=== PATIENT | female | born 1990 | race African-American/Black ===

== ENCOUNTER 2016-06-14 13:05 | Emergency (ER) | payer OTHER ==
[2016-06-14 13:21] VITALS: BP 129/53; PULSE 78; TEMP 98; BMI 21.2
--- NOTE | 2016-06-14 14:05 | PDOC ---
History of Present Illness - General Chief Complaint: Laceration Stated Complaint: RT HAND INJURY Time Seen by Provider: 06/14/16 13:58 History Source: Patient Exam Limitations: No Limitations - History of Present Illness Initial Comments: 06/14/16 15:02 My Chief Complaint: Laceration to right palm History of present illness: Patient is a 26-year-old female with a history of renal calculi here today with a superficial laceration to her right palm proximal to her thumb sustained on a broken tile in her home she was cleaning that area. Patient is right handed. Patient is not up-to-date with tetanus is requesting to have updated today. Patient reports slight tenderness around area. She denies any numbness of right palm or digits on her right hand. Occurred: reports: just prior to arrival Severity: reports: mild (right hand superficial laceration ) Pain Location: reports: upper extremity (rt. palm proximal ) Method of Injury: Yes: other (cut on tile ) Modifying Factors: improves with: None Associated Symptoms (Fall): other (laceration rt. sweeney proximal to thumb ) Past History - Past Medical History Allergies/Adverse Reactions: Allergies Allergy/AdvReac Type Severity Reaction Status Date / Time levofloxacin [From Levaquin] Allergy Severe Difficulty Verified 06/14/16 13:16 Breathing morphine Allergy Severe Verified 06/14/16 13:16 witch anuradha Allergy Intermediate Hives Verified 06/14/16 13:16 kirsten Allergy Verified 06/14/16 13:16 pineapple Allergy Verified 06/14/16 13:16 cherries Allergy Uncoded 06/14/16 13:16 Home Medications: Ambulatory Orders NK [No Known Home Medication] 06/14/16 Asthma: No Cancer: No Cardiac Disorders: No Diabetes: No HTN: No Kidney Stones: Yes Suicide Attempt (Hx): No Seizures: No Thyroid Disease: No - Reproductive History (#): 2 Para: 0 - Immunization History Immunization Up to Date: Yes - Psycho/Social/Smoking Cessation Hx Anxiety: Yes Suicidal Ideation: No Smoking Status: Yes Smoking History: Never smoked Years of Tobacco Use: 4 Have you smoked in the past 12 months: No Number of Cigarettes Smoked Daily: 0 If you are a former smoker, when did you quit?: 1 year Cigars Per Day: 0 Information on smoking cessation initiated: No Hx Alcohol Use: No Drug/Substance Use Hx: Yes (past marijuan use neg drug tox admission) Substance Use Type: None Hx Substance Use Treatment: No Review of Systems - Review of Systems Able to Perform ROS?: Yes Constitutional: No: Symptoms Reported Respiratory: No: Symptoms reported Cardiac (ROS): No: Symptoms Reported Musculoskeletal: No: Symptoms Reported Integumentary: Yes: Other (superficial laceration rt. palm proximal to thumb ) Neurological: No: Symptoms reported *Physical Exam - Vital Signs Last Vital Signs Temp Pulse Resp BP Pulse Ox 98 F 78 18 129/53 98 06/14/16 13:12 06/14/16 13:12 06/14/16 13:12 06/14/16 13:12 06/14/16 13:12 - Physical Exam General Appearance: Yes: Appropriately Dressed Comments:: 06/14/16 15:01 radial pulse 4 + right Extremity: positive: Normal Capillary Refill, Normal Range of Motion (all digits rt. hand ). negative: Tender Integumentary: positive: Other (superfical linear laceration rt. palm proximal to thumb approx 2 cm x 0.25 cm ) Neurologic: positive: Alert, Normal Response, Respond to painful stimul (right palm and all digits ). negative: Numbness, Sensory Deficit (rt. hand and all digits on rt. hand ) Medical Decision Making - Medical Decision Making 06/14/16 15:04 Patient is a 26-year-old female with a history of renal calculi here today with a superficial laceration to her right palm proximal to her thumb sustained on a broken tile in her home she was cleaning that area. Patient is right handed. Patient is not up-to-date with tetanus is requesting to have updated today. Patient reports slight tenderness around area. She denies any numbness of right palm or digits on her right hand. Right palm superficial laceration PLAN: dermabond to laceration rt. palm telfa applied with rhiannon TDAP 0.5 ml IM now *DC/Admit/Observation/Transfer Diagnosis at time of Disposition: Laceration of palm without complication Qualifiers: Encounter type: initial encounter Laterality: right Qualified Code(s): S61.411A - Laceration without foreign body of right hand, initial encounter - Discharge Dispostion Disposition: HOME Condition at time of disposition: Stable - Patient Instructions Additional Instructions: TODAY your tetanus, diphtheria and pertussis vaccine was updated Keep right hand dry until tomorrow then may wash do not scrub area that was involved allow glue to fall off on its own, pat dry than apply dressing allow Once glue falls off may wash area with antibacterial soap and water twice daily pat dry and apply tiny amount of bacitracin ointment cover with Band-Aid when out of the home let air out at night Return to emergency room if any redness around wound or any fever or any discharge from wound You may take Tylenol or ibuprofen for any pain as directed by sap basis Patient voiced understanding of discharge instructions and all questions were answered - Post Discharge Activity Work/School Note: Back to Work
[2016-06-14] MEDS ORDERED: DIPHTH,PERTUSS(ACELL),TET 0.5 ML DISP.SYRIN IM ONE (14:39)
== END 2016-06-14 15:16 | disposition home or self-care (01) ==
LOC: JERFT 13:05 → JER 13:05 → JERFT 15:16
PROC: 3E0234Z Introduction of Serum, Toxoid and Vaccine into Muscle, Percutaneous Approach (ICD-10-PCS; principal; 2016-06-14)
PROC: 0HQFXZZ Repair Right Hand Skin, External Approach (ICD-10-PCS; 2016-06-14)
DX: S61.411A Laceration without foreign body of right hand, initial encounter (principal); W26.8XXA Contact with other sharp object(s), not elsewhere classified, initial encounter; Y93.E9 Activity, other interior property and clothing maintenance; Y92.038 Other place in apartment as the place of occurrence of the external cause
CPT/HCPCS: 12002-25; 90471; 90715; 99281-25

== ENCOUNTER 2017-02-20 16:24 | Emergency (ER) | payer OTHER ==
--- NOTE | 2017-02-20 16:36 | PDOC ---
Rapid Medical Evaluation Time Seen by Provider: 02/20/17 16:33 Medical Evaluation: Allergies Allergy/AdvReac Type Severity Reaction Status Date / Time levofloxacin [From Levaquin] Allergy Severe Difficulty Verified 06/14/16 13:16 Breathing morphine Allergy Severe Verified 06/14/16 13:16 witch anuradha Allergy Intermediate Hives Verified 06/14/16 13:16 kirsten Allergy Verified 06/14/16 13:16 pineapple Allergy Verified 06/14/16 13:16 cherries Allergy Uncoded 06/14/16 13:16 02/20/17 16:33 I have performed a brief in-person evaluation of this patient. The patient presents with a chief complaint of: left foot pain Pertinent physical exam findings: EXT: left ankle tenderness over dorsum of foot. Able to bear weight. No bony tenderness to malleolus, base of 5th metatarsal or navicular. I have ordered the following: upt The patient will proceed to the ED for further evaluation. Discharge Disposition - Diagnosis Left ankle pain - Referrals - Patient Instructions - Post Discharge Activity
[2017-02-20 16:38] VITALS: BP 127/57; PULSE 88; TEMP 98.1; BMI 20.5
--- NOTE | 2017-02-20 17:22 | PDOC ---
History of Present Illness - General Chief Complaint: Pain Stated Complaint: ANKLE INJURY Time Seen by Provider: 02/20/17 16:33 History Source: Patient Exam Limitations: No Limitations - History of Present Illness Initial Comments: 02/20/17 17:21 My Chief Complaint: Left foot pain and left fifth toe pain and posterior left knee pain since yesterday History of present illness: Patient is a 26-year-old female with a history of renal calculi here today after falling on stairs last night and in her left foot and leg backwards. She reports having pain to her left lateral foot and fifth toe and posterior left knee that is currently between a 6 and 7 aching in nature. Patient does not have any gross deformity of her left foot or knee. Patient took Aleve earlier today. Patient is ambulating with a slight limp. 02/20/17 18:15 02/20/17 18:17 Occurred: reports: yesterday Severity: Yes: moderate Lower Extremity Pain Location: left: 5th toe, foot (lateral aspect ) Lower Ext. Injury Location - Specific Injury Location Hips: left hip: no evidence of injury Knees: left pain (posterior left knee) Foot: left foot pain (lateral foot, left 5th toe) Extremity Pain Location - Extremity Pain Location Extremity Pain Locations: left: 5th toe, foot (lateral aspect ), knee ( posterior aspect ) Past History - Past Medical History Allergies/Adverse Reactions: Allergies Allergy/AdvReac Type Severity Reaction Status Date / Time levofloxacin [From Levaquin] Allergy Severe Difficulty Verified 06/14/16 13:16 Breathing morphine Allergy Severe Verified 06/14/16 13:16 witch anuradha Allergy Intermediate Hives Verified 06/14/16 13:16 kirsten Allergy Verified 06/14/16 13:16 pineapple Allergy Verified 06/14/16 13:16 cherries Allergy Uncoded 06/14/16 13:16 Home Medications: Ambulatory Orders NK [No Known Home Medication] 06/14/16 Asthma: No Cancer: No Cardiac Disorders: No COPD: No Diabetes: No HTN: No Kidney Stones: Yes Seizures: No Thyroid Disease: No - Reproductive History (#): 2 Para: 0 - Immunization History Immunization Up to Date: Yes - Suicide/Smoking/Psychosocial Hx Smoking Status: Yes Smoking History: Current every day smoker Years of Tobacco Use: 4 Have you smoked in the past 12 months: No Number of Cigarettes Smoked Daily: 2 If you are a former smoker, when did you quit?: 1 year Cigars Per Day: 0 Information on smoking cessation initiated: No Hx Alcohol Use: No Drug/Substance Use Hx: No Substance Use Type: Marijuana Hx Substance Use Treatment: No Review of Systems - Review of Systems Able to Perform ROS?: Yes Constitutional: No: Symptoms Reported HEENTM: No: Symptoms Reported Respiratory: No: Symptoms reported Cardiac (ROS): No: Symptoms Reported ABD/GI: No: Symptoms Reported : No: Symptoms Reported Musculoskeletal: Yes: Joint Pain (left posterior knee, left lateral foot, left 5th toe). No: Joint Swelling Integumentary: No: Symptoms Reported Neurological: No: Symptoms reported *Physical Exam - Vital Signs Last Vital Signs Temp Pulse Resp BP Pulse Ox 98.1 F 88 14 127/57 100 02/20/17 16:33 02/20/17 16:33 02/20/17 16:33 02/20/17 16:33 02/20/17 16:33 - Physical Exam General Appearance: Yes: Appropriately Dressed Vascular Pulses: Doralis-Pedis (L): 4+ Extremity: positive: Normal Capillary Refill, Normal Inspection, Normal Range of Motion (left knee, left ankle/foot/toes left ), Tender (left posterior knee, left lateral foot/ all toes left foot ), Other (negative anterior/posterior drawer ). negative: Swelling Integumentary: positive: Normal Color Neurologic: positive: Alert, Normal Response, Respond to painful stimul (left foot/toes ). negative: Numbness, Sensory Deficit (left foot/toes/ankle) Procedures - Consent Consent obtained: From Patient - Splinting Splint Location: Left: Foot Pre-Proc Neuro Vasc Exam: normal Manuelito Bandage: 3" Complications: No Medical Decision Making - Medical Decision Making 02/20/17 18:17 Patient is a 26-year-old female with a history of renal calculi here today after falling on stairs last night and in her left foot and leg backwards. She reports having pain to her left lateral foot and fifth toe and posterior left knee that is currently between a 6 and 7 aching in nature. Patient does not have any gross deformity of her left foot or knee. Patient took Aleve earlier today. Patient is ambulating with a slight limp. She denies any chance of . Rule out fracture left foot and toes Knee pain posterior Fall Plan: xray left foot negative for fracture manuelito wrap left foot *DC/Admit/Observation/Transfer Diagnosis at time of Disposition: Fall (on) (from) other stairs and steps, initial encounter Left ankle pain Qualifiers: Chronicity: acute Qualified Code(s): M25.572 - Pain in left ankle and joints of left foot Sprain of foot, left Qualifiers: Encounter type: initial encounter Qualified Code(s): S93.602A - Unspecified sprain of left foot, initial encounter Posterior knee pain Qualifiers: Laterality: left Qualified Code(s): M25.562 - Pain in left knee - Discharge Dispostion Disposition: HOME Condition at time of disposition: Stable - Referrals Referrals: Vannessa Davison [Primary Care Provider] - - Patient Instructions Additional Instructions: Elevate your left foot and leg and ice left foot every hour for at least 15 minutes while awake today Wear Manuelito wrap during the day take off at night Take ibuprofen as needed as directed by chief orthoptist for pain Follow-up with orthopedist next week if pain continues and left foot and left knee Return to emergency room if symptoms worsen or new symptoms develop Patient voiced understanding of discharge instructions and all questions were answered Thank you for choosing [facility]. Medical needs today - Post Discharge Activity Forms/Work/School Notes: Back to Work
== END 2017-02-20 18:22 | disposition home or self-care (01) ==
LOC: JERFT 16:24
DX: S93.602A Unspecified sprain of left foot, initial encounter (principal); W10.8XXA Fall (on) (from) other stairs and steps, initial encounter; Z91.81 History of falling; Y93.89 Activity, other specified; Y92.89 Other specified places as the place of occurrence of the external cause
CPT/HCPCS: 73630-TC-LT; 99281-25

== ENCOUNTER 2017-06-27 15:15 | Emergency (ER) | payer OTHER ==
[2017-06-27 15:24] VITALS: BP 108/67; PULSE 82; TEMP 98.5; BMI 17.6
[2017-06-27] MEDS ORDERED: SODIUM CHLORIDE 0.9% 500 ML INFUS.BAG IV ONE (15:54)
[2017-06-27] MEDS ORDERED: KETOROLAC TROMETHAMINE 15 MG/ML VIAL IVPUSH ONE (15:54)
[2017-06-27] MEDS ORDERED: ONDANSETRON 4 MG/2 ML VIAL IVPUSH ONE ×2 (15:54→18:42)
--- NOTE | 2017-06-27 15:56 | PDOC ---
History of Present Illness - General History Source: Patient Exam Limitations: No Limitations - History of Present Illness Initial Comments: This is a 27 YOF who is with h/o kidney stones (last years ago and had stent placed and then removed), vacuum in 04/2016, and marijuana use (5- 6 times/day) who p/w nausea, vomiting, diarrhea, and bilateral flank pain since yesterday. Her symptoms started with loose light brown/yellow stool yesterday ( 6 episodes since that time). The had the onset of flank pain yesterday evening, worse on the right side than the left, and describes is as like pressure with twinges of sharper pain. She had the onset of nausea this morning and has vomited 4 times since that time without blood or bile. She notes occasional chills, but denies any headache, chest pain, abdominal pain, SOB, dizziness, LOC , burning/pain/strange color/strange smell on urination, or vaginal discharge. She has a h/o genital HSV, is sexually active with one person (her boyfriend) without protection, and has not been talking control. She is on her menstrual period, which is the the first one she has had since her in April. <Daniella Field - Last Filed: 06/28/17 00:06> <Beltran Almanza - Last Filed: 06/28/17 00:58> - General Chief Complaint: Nausea Stated Complaint: NAUSEA, VOMITING Time Seen by Provider: 06/27/17 15:37 Past History - Past Medical History Asthma: No Cancer: No Cardiac Disorders: No COPD: No Diabetes: No HTN: No Kidney Stones: Yes Seizures: No Thyroid Disease: No - Reproductive History (#): 2 Para: 0 - Immunization History Immunization Up to Date: Yes - Suicide/Smoking/Psychosocial Hx Smoking Status: Yes Smoking History: Never smoked Years of Tobacco Use: 4 Have you smoked in the past 12 months: No Number of Cigarettes Smoked Daily: 2 If you are a former smoker, when did you quit?: 1 year Cigars Per Day: 0 Information on smoking cessation initiated: No Hx Alcohol Use: No Drug/Substance Use Hx: No Substance Use Type: Marijuana Hx Substance Use Treatment: No <Daniella Field - Last Filed: 06/28/17 00:06> <Beltran Almanza - Last Filed: 06/28/17 00:58> - Past Medical History Allergies/Adverse Reactions: Allergies Allergy/AdvReac Type Severity Reaction Status Date / Time levofloxacin [From Levaquin] Allergy Severe Difficulty Verified 06/27/17 15:21 Breathing morphine Allergy Severe Verified 06/27/17 15:21 witch anuradha Allergy Intermediate Hives Verified 06/27/17 15:21 kirsten Allergy Verified 06/27/17 15:21 pineapple Allergy Verified 06/27/17 15:21 cherries Allergy Uncoded 06/27/17 15:21 Home Medications: Ambulatory Orders Sulfamethoxazole/Trimethoprim [Bactrim Ds -] 1 tab PO BID #28 tablet 06/28/17 Review of Systems - Review of Systems Able to Perform ROS?: Yes Constitutional: Yes: Chills. No: Fever, Unexplained wgt Loss HEENTM: No: Nose Congestion, Throat Pain Respiratory: No: Cough, Shortness of Breath Cardiac (ROS): No: Chest Pain, Palpitations ABD/GI: Yes: Diarrhea, Nausea, Vomiting. No: Constipated : Yes: Flank Pain. No: Burning, Dysuria, Hematuria Musculoskeletal: No: Back Pain, Neck Pain Integumentary: No: Bruising, Rash Neurological: No: Headache, Numbness, Tingling, Weakness, Dizziness Endocrine: No: Unexplained Weight Gain, Unexplained Weight Loss <Daniella Field - Last Filed: 06/28/17 00:06> *Physical Exam - Vital Signs Last Vital Signs Temp Pulse Resp BP Pulse Ox 98.5 F 82 16 108/67 100 06/27/17 15:21 06/27/17 15:21 06/27/17 15:21 06/27/17 15:21 06/27/17 15:21 - Physical Exam General Appearance: Yes: Nourished, Appropriately Dressed, Thin, Other (well appearing and mildly uncomfortable-appearing adult female who is conversive, answering questions appropriately, holding right flank in her right hand and laying in left lateral decubitus position). No: Apparent Distress HEENT: positive: EOMI, KULWINDER, Normal Voice, Hearing Grossly Normal. negative: Scleral Icterus (R), Scleral Icterus (L), Nasal Congestion Neck: positive: Trachea midline, Supple. negative: Tender, Rigid Respiratory/Chest: positive: Lungs Clear, Normal Breath Sounds. negative: Respiratory Distress, Crackles, Rhonchi, Stridor, Wheezing Cardiovascular: positive: Regular Rhythm, Regular Rate, S1, S2. negative: Edema , JVD, Murmur Gastrointestinal/Abdominal: positive: Normal Bowel Sounds, Tender (mild epigastric ttp), Flat, Soft. negative: Organomegaly, Pulsatile Mass, Guarding Musculoskeletal: positive: Normal Inspection, Other (L>R CVA ttp, mild epigastric ttp, no peritoneal signs). negative: Decreased Range of Motion, Vertebral Tenderness Extremity: positive: Normal Capillary Refill, Normal Inspection, Normal Range of Motion. negative: Tender, Cyanosis Integumentary: positive: Normal Color, Dry, Warm. 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 negative: Facial Droop , Confused, Disoriented <Daniella Field - Last Filed: 06/28/17 00:06> - Vital Signs Last Vital Signs Temp Pulse Resp BP Pulse Ox 98.5 F 82 16 108/67 100 06/27/17 15:21 06/27/17 15:21 06/27/17 15:21 06/27/17 15:21 06/27/17 15:21 <Beltran Almanza - Last Filed: 06/28/17 00:58> ED Treatment Course - LABORATORY CBC & Chemistry Diagram: 06/27/17 16:25 06/27/17 16:25 <Daniella Field - Last Filed: 06/28/17 00:06> - LABORATORY CBC & Chemistry Diagram: 06/27/17 16:25 06/27/17 16:25 - ADDITIONAL ORDERS Additional order review: Laboratory Results 06/27/17 06/27/17 06/27/17 19:30 17:40 17:40 Sodium Potassium Chloride Carbon Dioxide Anion Gap BUN Creatinine Creat Clearance w eGFR Random Glucose Calcium Total Bilirubin AST ALT Alkaline Phosphatase Total Protein Albumin Lipase Urine Color Yellow Cancelled Urine Appearance Turbid Cancelled Urine pH 5.0 Cancelled Ur Specific [place] 1.030 Cancelled Urine Protein 1+ H Cancelled Urine Glucose (UA) Negative Cancelled Urine Ketones Trace H Cancelled Urine Blood 2+ H Cancelled Urine Nitrite Negative Cancelled Urine Bilirubin Negative Cancelled Urine Urobilinogen Negative Cancelled Ur Leukocyte Esterase Negative Cancelled Urine WBC (Auto) 74 Urine RBC (Auto) 19 Urine Bacteria Rare Urine Mucus Many Urine HCG, Qual Negative 06/27/17 06/27/17 16:25 16:25 Sodium 138 Potassium 3.7 Chloride 109 H Carbon Dioxide 24 Anion Gap 5 L BUN 14 Creatinine 0.8 Creat Clearance w eGFR > 60 Random Glucose 72 L Calcium 8.8 Total Bilirubin 0.6 D AST 26 ALT 27 Alkaline Phosphatase 71 Total Protein 9.2 H Albumin 4.7 Lipase 99 Urine Color Urine Appearance Urine pH Ur Specific [place] Urine Protein Urine Glucose (UA) Urine Ketones Urine Blood Urine Nitrite Urine Bilirubin Urine Urobilinogen Ur Leukocyte Esterase Urine WBC (Auto) Urine RBC (Auto) Urine Bacteria Urine Mucus Urine HCG, Qual 06/27/17 16:25 RBC 4.65 D MCV 86.6 MCHC 34.1 RDW 13.2 MPV 7.1 L Neutrophils % 76.7 Lymphocytes % 16.8 D Monocytes % 5.0 Eosinophils % 1.3 Basophils % 0.2 - Medications Given in the ED: ED Medications Discontinued Medications Generic Name Dose Route Start Last Admin Trade Name Freq PRN Reason Stop Dose Admin Famotidine/Sodium Chloride 20 mg in 50 mls @ 100 mls/hr 06/27/17 19:00 19:07 Pepcid 20 Mg Premixed Ivpb - IVPB 06/27/17 19:29 100 mls/hr ONCE ONE Administration Ceftriaxone Sodium 1,000 mg/ 50 mls @ 100 mls/hr 06/27/17 20:08 06/27/17 21: 12 Dextrose IVPB 06/27/17 20:37 100 mls/hr ONCE ONE Administration Ketorolac Tromethamine 15 mg 06/27/17 15:54 06/27/17 16:30 Toradol Injection - IVPUSH 06/27/17 15:55 15 mg ONCE ONE Administration Ketorolac Tromethamine 15 mg 06/27/17 22:42 06/27/17 22:49 Toradol Injection - IVPUSH 06/27/17 22:43 15 mg ONCE ONE Administration Ondansetron HCl 4 mg 06/27/17 15:54 06/27/17 16:30 Zofran Injection IVPUSH 06/27/17 15:55 4 mg ONCE ONE Administration Ondansetron HCl 4 mg 06/27/17 18:42 06/27/17 19:07 Zofran Injection IVPUSH 06/27/17 18:43 4 mg ONCE ONE Administration Sodium Chloride 1,000 ml 06/27/17 15:54 06/27/17 16:30 Normal Saline - IV 06/27/17 15:55 1,000 ml ONCE ONE Administration <Beltran Almanza - Last Filed: 06/28/17 00:58> Medical Decision Making - Medical Decision Making Patient p/w severe flank pain. Initial Vital Signs Temp Pulse Resp BP Pulse Ox 98.5 F 82 16 108/67 100 06/27/17 15:21 06/27/17 15:21 06/27/17 15:21 06/27/17 15:21 06/27/17 15:21 Exam: L>R CVA ttp, mild epigastric ttp, no peritoneal signs DDX IBNLT: renal colic, obstructive uropathy, UTI/pyelonephritis, PE, cholecystitis, cholangitis, pancreatitis, gastritis, PUD, colitis, ruptured diverticulosis, diverticulitis wwo abscess or perforation, appendicitis, hernia , SBO, malignancy, splenic infarction, mesenteric ischemia, bowel perforation, ovarian torsion, ovarian cyst, PID, TOA, endometriosis, fibroid, musculoskeletal , constipation, etc. W/U ordered: CBCD CMP Mg Phos UA UCx GC/Chlamydia/Trich KE US Kidneys Ureters Bladder TX ordered: IVF, Toradol On reassessment: Patient states pain much improved and now only has mild epigastric ttp, nausea is returning. Ordered IV Pepcid and another 4 mg dose Zofran. Also ordered is US Kidneys. Repeat VS: US kidneys shows moderate right hydronephrosis. Patient is high risk for obstructive nephropathy with infection. Ordered is spiral CT; patient agrees with this plan. Spiral CT without e/o obstructing stone. The patient has gotten significant relief of symptoms with ED medications. Workup is not concerning for emergency-level pathology at this time. The patient is appropriate for discharge with close outpatient follow up. They are comfortable with this plan and will follow up with their PCP in 1-3 days. I also give her referral information for Urology. She is counseled to stay well-hydrated, take Bactrim for her UTI/pyelonephritis. Return precautions are discussed and they will come back to the ER if necessary. <Daniella Field - Last Filed: 06/28/17 00:06> *DC/Admit/Observation/Transfer - Discharge Dispostion Admit: No <Daniella Field - Last Filed: 06/28/17 00:06> <Beltran Almanza - Last Filed: 06/28/17 00:58> Diagnosis at time of Disposition: Pyelonephritis, Nausea & vomiting - Discharge Dispostion Disposition: HOME Condition at time of disposition: Stable - Prescriptions Prescriptions: Sulfamethoxazole/Trimethoprim [Bactrim Ds -] 1 tab PO BID #28 tablet - Referrals Referrals: Harish Vaz MD [Staff Physician] - - Patient Instructions Printed Discharge Instructions: DI for Kidney Infection Additional Instructions: You were seen in the ER for a kidney stone that passed while you were here in the department, and for a bladder/kidney infection likely because of this stone. We did laboratory tests on your urine and blood, an ultrasound of the kidneys, and a CT scan of the abdomen. We gave you medications and IV fluids which helped your symptoms. After our assessment, we do not believe you are having a medical emergency at this time, and we believe you are safe to go home. supplier diversity director and take your prescription for Bactrim that we are sending electronically to your pharmacy. Please take the whole course as prescribed. We are giving you referral information for a urologist in case you need a new one. Please also take over the counter pain medications for pain, following the instructions on the medication label. Please follow up with your regular doctor in 1-3 days. Call their clinic [facility], tell them you were seen in the ER, and tell them you need an appointment. Please come back to the ER at any time, 24 hours a day, for any new or worsening symptoms, like worsening pain unrelieved with medications, fever, inability to urinate, burning on urination, or other symptoms. If you are having severe or life threatening symptoms, or symptoms that make it unsafe to drive or have someone drive you, please call 911. - Post Discharge Activity Forms/Work/School Notes: Back to Work
[2017-06-27] MEDS ORDERED: KETOROLAC TROMETHAMINE 15 MG/ML VIAL ONE ×2 (16:29→22:44)
[2017-06-27] MEDS ORDERED: ONDANSETRON 4 MG/2 ML VIAL ONE ×2 (16:29→19:01)
[2017-06-27 16:39] LABS: BASO % 0.2 % (0-2.0); EOS % 1.3 % (0-4.5); HEMATOCRIT 40.3 % (32.4-45.2); HEMOGLOBIN 13.7 GM/dL (10.7-15.3); LYMPH % 16.8 % (8-40); MCH 29.5 pg (25.7-33.7); MCHC 34.1 g/dl (32.0-36.0); MEAN CELL VOLUME 86.6 fl (80-96); MEAN PLT VOLUME 7.1 fl (7.5-11.1); NEUT % 76.7 % (42.8-82.8); PLATELET COUNT 231 K/MM3 (134-434); RBC 4.65 M/mm3 (3.60-5.2); RDW 13.2 % (11.6-15.6); WHITE BLOOD COUNT 5.6 K/mm3 (4.0-10.0)
--- NOTE | 2017-06-27 17:04 | PDOC ---
Attending Attestation - HPI HPI: 06/27/17 17:42 The patient is a 27 year old female, with a significant past medical history of kidney stones and genital HSV, who presents to the ED for evaluation of nausea, vomiting, diarrhea, and bilateral flank pain since yesterday. The patient reports 6 episodes of loose light brown stool yesterday. She describes the flank pain as pressure like, sharp in nature. She reports associated symptoms of chills and nausea, endorsing 4 episodes of NBNB emesis. The patient denies headache, chest pain, abdominal pain, SOB, dizziness, and loss of consciousness. She denies strange color/strange smell on urination, dysuria, hematuria, and abnormal vaginal discharge. Past surgical history: Stent placed and then removed, vacuum (04/2016). Social history: Marijuana use (5-6 times/day). No reported cigarette or alcohol use. <Jackson Chiang - Last Filed: 06/27/17 18:32> - Resident Resident Name: Daniella Field - ED Attending Attestation I have performed the following: I have examined & evaluated the patient, The case was reviewed & discussed with the resident, I agree w/resident's findings & plan, Exceptions are as noted - Physicial Exam PE: 06/27/17 20:16 Patient is awake and alert, resting comfortably, afebrile, hemodynamically stable Normocephalic, atraumatic PERRLA, EOMI CTA RRR Soft, nontender, nondistended, mild bilateral CVA tenderness No midline TLS tenderness to palpation - Medical Decision Making 06/27/17 20:17 Patient is well-appearing 27-year-old female who presents with atraumatic bilateral flank pain associated with nausea and nonbloody, nonbilious vomiting. In the ER, patient is awake and alert, afebrile with minimal bilateral CVA tenderness to palpation and mild epigastric discomfort on deep palpation. I suspect clinical pyelonephritis with gastritis likely related to frequent vomiting. We will administer IV fluids, antipyretics, H2 blockers. UA consistent with pyuria. Will administer ceftriaxone. will obtain renal us. will reascess. 06/27/17 22:49 renal US shows moderate right hydronephrosis. will obtain spiral ct to eval for obstructing stone. <Beltran Almanza - Last Filed: 06/27/17 22:49> Attestations - Attestations Documentation prepared by Jackson Chiang, acting as manager medical device for Beltran Almanza MD. <Jackson Chiang - Last Filed: 06/27/17 18:32>
[2017-06-27 17:05] LABS: ALBUMIN 4.7 g/dl (3.4-5.0); ANION GAP 5 (8-16); BLOOD UREA NITROGEN 14 mg/dL (7-18); CALCIUM 8.8 mg/dL (8.5-10.1); CHLORIDE 109 mmol/L (98-107); CO2 24 mmol/L (21-32); CREATININE 0.8 mg/dL (0.55-1.02); GLUCOSE,RANDOM 72 mg/dL (74-106); POTASSIUM 3.7 mmol/L (3.5-5.1); SGOT/AST 26 U/L (15-37); SGPT/ALT 27 U/L (12-78); SODIUM 138 mmol/L (136-145)
[2017-06-27 17:07] LABS: ALK PHOS 71 U/L (45-117); BILIRUBIN,TOTAL 0.6 mg/dL (0.2-1.0); TOT PROT 9.2 g/dl (6.4-8.2)
[2017-06-27] MEDS ORDERED: FAMOTIDINE 20 MG/50 ML IVPB 20 MG/50 ML MG IVPB ONE ×2 (19:00→19:01)
[2017-06-27 19:44] LABS: URINE APPEARANCE TURBID; URINE BILIRUBIN NEGATIVE (<2.0 mg/dL); URINE BLOOD 2+ (NEGATIVE); URINE COLOR YELLOW; URINE GLUCOSE (UA) NEGATIVE (NEGATIVE); URINE KETONE TRACE (NEGATIVE); URINE LEUK ESTERASE NEGATIVE (NEGATIVE); URINE NITRITE NEGATIVE (NEGATIVE); URINE UROBILINOGEN NEGATIVE mg/dL (0.2-1.0)
[2017-06-27 19:45] LABS: URINE PROTEIN 1+ (NEGATIVE)
[2017-06-27 19:48] LABS: URINE BACTERIA RARE /hpf (NONE SEEN); URINE MUCUS MANY
[2017-06-27] MEDS ORDERED: CEFTRIAXONE 1,000 MG in DEXTROSE 5%-WATER - 50 ML IVPB ONE (20:08)
[2017-06-27] MEDS ORDERED: CEFTRIAXONE 1 GM/50 ML BAG ONE (21:06)
[2017-06-27] MEDS ORDERED: KETOROLAC TROMETHAMINE 30 MG/1 ML VIAL IVPUSH ONE (22:42)
== END 2017-06-28 01:01 | disposition home or self-care (01) ==
LOC: JER 15:15
PROC: 3E03329 Introduction of Other Anti-infective into Peripheral Vein, Percutaneous Approach (ICD-10-PCS; principal; 2017-06-27)
PROC: 3E033GC Introduction of Other Therapeutic Substance into Peripheral Vein, Percutaneous Approach (ICD-10-PCS; 2017-06-27)
PROC: 3E033GC Introduction of Other Therapeutic Substance into Peripheral Vein, Percutaneous Approach (ICD-10-PCS; 2017-06-27)
PROC: 3E033GC Introduction of Other Therapeutic Substance into Peripheral Vein, Percutaneous Approach (ICD-10-PCS; 2017-06-27)
PROC: 3E033NZ Introduction of Analgesics, Hypnotics, Sedatives into Peripheral Vein, Percutaneous Approach (ICD-10-PCS; 2017-06-27)
PROC: 3E033NZ Introduction of Analgesics, Hypnotics, Sedatives into Peripheral Vein, Percutaneous Approach (ICD-10-PCS; 2017-06-27)
DX: N12 Tubulo-interstitial nephritis, not specified as acute or chronic (principal); N13.30 Unspecified hydronephrosis; Z87.442 Personal history of urinary calculi; Z88.8 Allergy status to other drugs, medicaments and biological substances; Z91.018 Allergy to other foods
CPT/HCPCS: 36415; 74176; 76775-TC; 80053; 81003; 81015; 83690; 84703; 85025; 87086; 96365; 96367; 96375; 96376; 99282-25

== ENCOUNTER 2019-02-10 12:21 | Emergency (ER) | payer OTHER ==
[2019-02-10 12:38] VITALS: BP 132/78; PULSE 80; TEMP 98; BMI 20.3
[2019-02-10] MEDS ORDERED: IBUPROFEN 600 MG TABLET (FP) PO ONE ×2 (14:38→14:43)
[2019-02-10] MEDS ORDERED: diazePAM 2 MG TABLET PO ONE (14:38)
[2019-02-10] MEDS ORDERED: diazePAM 2 MG TABLET ONE (14:44)
--- NOTE | 2019-02-10 15:31 | PDOC ---
History of Present Illness - General Chief Complaint: Pain Stated Complaint: SHOULDER PAIN Time Seen by Provider: 02/10/19 13:35 History Source: Patient Exam Limitations: No Limitations - History of Present Illness Initial Comments: 02/10/19 15:26 28-year-old female denies past medical history [id number] presents complaining of right shoulder and right scapular pain x3 days. Patient works in the [employer] business, has been working 7 days a week for the past 3 weeks for approximately 13 hours a day. Also carries her 3-year-old daughter on a regular basis. Denies direct trauma, numbness, tingling, weakness to right upper extremity. Took 600 mg of ibuprofen yesterday with slight relief. ROS: GENERAL/CONSTITUTIONAL: No fever, chills, weakness, dizziness HEAD, EYES, EARS, NOSE AND THROAT: No changes in vision, No ear pain or discharge, No sore throat CARDIOVASCULAR: No chest pain RESPIRATORY: No shortness of breath or cough GASTROINTESTINAL: No pain, nausea, vomiting, diarrhea or constipation GENITOURINARY: No dysuria MUSCULOSKELETAL: Right shoulder pain, right scapular pain, no neck pain SKIN: No rash NEUROLOGIC: No headache, vertigo, loss of consciousness, or loss of sensation PE: GENERAL: well-appearing, NAD HEAD: NCAT EYES: Pupils equal, round and reactive to light, sclera anicteric, conjunctiva clear ENT: pharynx: no erythema, no exudate, uvula midline NECK: supple CHEST: nontender RESP: clear, no w/r/r CARDIO: rrr, no m/g/r ABD: +BS, soft, nontender, non distended BACK: no midline spinal ttp, no CVAT EXTREMITIES: Normal range of motion of right shoulder, no edema, no bony tenderness on palpation NEUROLOGICAL: Normal speech, normal gait SKIN: Warm, Dry Is this a multiple visit Asthma Patient?: No Past History - Past Medical History Allergies/Adverse Reactions: Allergies Allergy/AdvReac Type Severity Reaction Status Date / Time levofloxacin [From Levaquin] Allergy Severe Difficulty Verified 02/10/19 12:37 Breathing morphine Allergy Severe Verified 02/10/19 12:37 witch anuradha Allergy Intermediate Hives Verified 02/10/19 12:37 kirsten Allergy Verified 02/10/19 12:37 pineapple Allergy Verified 02/10/19 12:37 cherries Allergy Uncoded 12/12/19 12:37 Home Medications: Ambulatory Orders Sulfamethoxazole/Trimethoprim [Bactrim Ds -] 1 tab PO BID #28 tablet 06/28/17 Asthma: No Cancer: No Cardiac Disorders: No COPD: No Diabetes: No HTN: No Kidney Stones: Yes Seizures: No Thyroid Disease: No - Reproductive History (#): 2 Para: 0 - Immunization History Immunization Up to Date: Yes - Psycho Social/Smoking Cessation Hx Smoking Status: Yes Smoking History: Never smoked Years of Tobacco Use: 4 Have you smoked in the past 12 months: No Number of Cigarettes Smoked Daily: 2 If you are a former smoker, when did you quit?: 1 year Cigars Per Day: 0 Hx Alcohol Use: No Drug/Substance Use Hx: No Substance Use Type: Marijuana Hx Substance Use Treatment: No *Physical Exam - Vital Signs Last Vital Signs Temp Pulse Resp BP Pulse Ox 98 F 80 18 132/78 100 02/10/19 12:35 02/10/19 12:35 02/10/19 12:35 02/10/19 12:35 02/10/19 12:35 ED Treatment Course - Medications Given in the ED: ED Medications Discontinued Medications Generic Name Dose Route Start Last Admin Trade Name Freq PRN Reason Stop Dose Admin Diazepam 2 mg 02/10/19 14:38 02/10/19 14:46 Valium - PO 02/10/19 14:39 2 mg ONCE ONE Administration Ibuprofen 600 mg 02/10/19 14:38 02/10/19 14:46 Motrin - PO 02/10/19 14:39 600 mg ONCE ONE Administration Medical Decision Making - Medical Decision Making 02/10/19 15:28 28-year-old female with right shoulder and right scapular pain for 3 days after overuse at work and at home carrying her 3-year-old child. No right shoulder imaging indicated at this time Feels slightly better after p.o. Valium 2 mg and p.o. ibuprofen 600 mg Will discharge with shoulder sling Advised to range her shoulder several times a day to avoid frozen shoulder syndrome Note for work provided Return precautions discussed 02/10/19 15:31 Discharge - Discharge Information Problems reviewed: Yes Clinical Impression/Diagnosis: Right shoulder pain Qualifiers: Chronicity: acute Qualified Code(s): M25.511 - Pain in right shoulder Condition: Stable Disposition: HOME - Follow up/Referral Referrals: Anatoliy Fletcher MD [Primary Care Provider] - - Patient Discharge Instructions Additional Instructions: Take ibuprofen 600 mg as needed every 6 hours You may return to work Thursday, February 14, 2019 Remove your shoulder sling and move your shoulder several times a day - Post Discharge Activity
== END 2019-02-10 15:39 | disposition home or self-care (01) ==
LOC: JERFT 12:21
DX: M25.511 Pain in right shoulder (principal); X58.XXXA Exposure to other specified factors, initial encounter; Y93.89 Activity, other specified; Y92.89 Other specified places as the place of occurrence of the external cause; Z88.8 Allergy status to other drugs, medicaments and biological substances; Z88.6 Allergy status to analgesic agent; Z91.018 Allergy to other foods; Z91.09 Other allergy status, other than to drugs and biological substances
CPT/HCPCS: 99282-25

== ENCOUNTER 2020-04-30 11:30 | Emergency (ER) | payer OTHER ==
[2020-04-30 12:10] VITALS: BMI 22.3
[2020-04-30] MEDS ORDERED: SODIUM CHLORIDE 1,000 ML IV STA (13:28)
[2020-04-30] MEDS ORDERED: ACETAMINOPHEN 1000 MG/100 ML VIAL (NON FORMULARY) IVPB ONE (13:28)
[2020-04-30 13:30] LABS: BASO % 0.2 % (0-2.0); HEMATOCRIT 35.1 % (32.4-45.2); HEMOGLOBIN 12.1 GM/dL (10.7-15.3); LYMPH % 30.6 % (8-40); MCH 29.7 pg (25.7-33.7); MCHC 34.5 g/dl (32.0-36.0); MEAN PLT VOLUME 6.8 fl (7.5-11.1); MONO % 8.2 % (3.8-10.2); PLATELET COUNT 252 K/MM3 (134-434); RBC 4.08 M/mm3 (3.60-5.2); RDW 13.4 % (11.6-15.6); WHITE BLOOD COUNT 6.3 K/mm3 (4.0-10.0)
[2020-04-30] MEDS ORDERED: ACETAMINOPHEN INJECTION 100 ML IVPB ONE (13:33)
[2020-04-30] MEDS ORDERED: CEFTRIAXONE 500 MG in DEXTROSE 5%-WATER - 50 ML IVPB ONE (13:35)
[2020-04-30] MEDS ORDERED: AZITHROMYCIN 500 MG TABLET PO ONE (13:36)
[2020-04-30 13:40] LABS: POTASSIUM 4.2 mmol/L (3.5-5.1)
[2020-04-30 13:43] LABS: CALCIUM 8.7 mg/dL (8.5-10.1)
[2020-04-30 13:44] LABS: ALBUMIN 3.7 g/dl (3.4-5.0); BLOOD UREA NITROGEN 9.3 mg/dL (7-18)
[2020-04-30 13:47] LABS: CREATININE 0.6 mg/dL (0.55-1.3)
[2020-04-30 13:48] LABS: BILIRUBIN,TOTAL 0.2 mg/dL (0.2-1)
[2020-04-30 13:48] LABS: PH,URINE 7.5 (5.0-8.0); URINE APPEARANCE CLEAR; URINE BILIRUBIN NEGATIVE (NEGATIVE); URINE COLOR YELLOW; URINE GLUCOSE (UA) NEGATIVE (NEGATIVE); URINE KETONE NEGATIVE (NEGATIVE); URINE LEUK ESTERASE NEGATIVE (NEGATIVE); URINE NITRITE NEGATIVE (NEGATIVE); URINE PROTEIN NEGATIVE (NEGATIVE); URINE UROBILINOGEN 0.2 mg/dL (0.2-1.0)
[2020-04-30 13:49] LABS: TOT PROT 7.6 g/dl (6.4-8.2)
[2020-04-30] MEDS ORDERED: AZITHROMYCIN 250 MG TABLET ONE (14:03)
[2020-04-30] MEDS ORDERED: CEFTRIAXONE 1 GM/50 ML BAG ONE (14:06)
[2020-04-30] MEDS ORDERED: CEFTRIAXONE 1 GM in DEXTROSE 5%-WATER - 100 ML IVPB ONE (14:09)
[2020-04-30 14:38] LABS: EPI CELLS 14 /uL (0-25.1); HYALINE CASTS 0 /uL (0-3.1); URINE BACTERIA 597 /uL (0-1359); URINE RBC 10 /uL (0-23.9); URINE WBC 3 /uL (0-25.8)
[2020-04-30] MEDS ORDERED: METOCLOPRAMIDE HCL INJECTION 10 MG/2 ML VIAL IVPB ONE (15:28)
[2020-04-30] MEDS ORDERED: METOCLOPRAMIDE HCL INJECTION 10 MG/2 ML VIAL ONE (15:56)
[2020-04-30 16:52] VITALS: BP 117/86; PULSE 82; TEMP 98.9
== END 2020-04-30 16:52 | disposition home or self-care (01) ==
LOC: JER 11:30
PROC: 3E0333Z Introduction of Anti-inflammatory into Peripheral Vein, Percutaneous Approach (ICD-10-PCS; principal; 2020-04-30)
PROC: 3E03329 Introduction of Other Anti-infective into Peripheral Vein, Percutaneous Approach (ICD-10-PCS; 2020-04-30)
PROC: 3E033GC Introduction of Other Therapeutic Substance into Peripheral Vein, Percutaneous Approach (ICD-10-PCS; 2020-04-30)
PROC: 3E0337Z Introduction of Electrolytic and Water Balance Substance into Peripheral Vein, Percutaneous Approach (ICD-10-PCS; 2020-04-30)
DX: O26.891 Other specified pregnancy related conditions, first trimester (principal); R11.14 Bilious vomiting; R10.2 Pelvic and perineal pain; Z3A.01 Less than 8 weeks gestation of pregnancy
CPT/HCPCS: 36415; 76801-TC; 80053; 81003; 84702; 85025; 87070; 87077; 87086; 87205; 87491; 87591; 99285-25; J0131

== ENCOUNTER 2020-08-08 16:45 | Emergency (ER) | payer OTHER ==
[2020-08-08 16:55] VITALS: TEMP 97.9; BMI 25.4
[2020-08-08] MEDS ORDERED: SODIUM CHLORIDE 0.9% 500 ML INFUS.BAG IV ONE (17:22)
[2020-08-08] MEDS ORDERED: FAMOTIDINE 20 MG/50 ML IVPB 20 MG/50 ML MG IVPB ONE ×2 (17:22→17:39)
[2020-08-08 18:32] LABS: BASO % 0.5 % (0-2.0); EOS % 1.5 % (0-4.5); HEMATOCRIT 33.7 % (32.4-45.2); HEMOGLOBIN 11.5 GM/dL (10.7-15.3); LYMPH % 25.7 % (8-40); MCH 29.8 pg (25.7-33.7); MEAN CELL VOLUME 87.7 fl (80-96); MEAN PLT VOLUME 7.4 fl (7.5-11.1); MONO % 8.5 % (3.8-10.2); NEUT % 63.8 % (42.8-82.8); PH,URINE 7.5 (5.0-8.0); PLATELET COUNT 196 K/MM3 (134-434); RBC 3.85 M/mm3 (3.60-5.2); RDW 14.9 % (11.6-15.6); URINE APPEARANCE CLOUDY; URINE BILIRUBIN NEGATIVE (NEGATIVE); URINE COLOR YELLOW; URINE GLUCOSE (UA) NEGATIVE (NEGATIVE); URINE KETONE NEGATIVE (NEGATIVE); URINE LEUK ESTERASE NEGATIVE (NEGATIVE); URINE NITRITE NEGATIVE (NEGATIVE); URINE PROTEIN NEGATIVE (NEGATIVE); URINE UROBILINOGEN 0.2 mg/dL (0.2-1.0); WHITE BLOOD COUNT 8.2 K/mm3 (4.0-10.0)
[2020-08-08 18:51] LABS: CALCIUM 8.2 mg/dL (8.5-10.1)
[2020-08-08 18:52] LABS: ALBUMIN 2.9 g/dl (3.4-5.0); BLOOD UREA NITROGEN 7.1 mg/dL (7-18)
[2020-08-08 18:55] LABS: CREATININE 0.5 mg/dL (0.55-1.3)
[2020-08-08 18:56] LABS: BILIRUBIN,TOTAL 0.2 mg/dL (0.2-1)
[2020-08-08 18:57] LABS: TOT PROT 6.9 g/dl (6.4-8.2)
[2020-08-08 21:54] VITALS: BP 110/79; PULSE 75
== END 2020-08-08 21:54 | disposition home or self-care (01) ==
LOC: JER 16:45
PROC: 3E033GC Introduction of Other Therapeutic Substance into Peripheral Vein, Percutaneous Approach (ICD-10-PCS; principal; 2020-08-08)
DX: O99.891 Other specified diseases and conditions complicating pregnancy (principal); Z3A.22 22 weeks gestation of pregnancy
CPT/HCPCS: 36415; 76700-TC; 80053; 81003; 82962; 83690; 85025; 99284-25

== ENCOUNTER 2020-12-02 09:45 | Inpatient (IN) | payer OTHER ==
[2020-12-02] MEDS ORDERED: AMPICILLIN SODIUM 2 GM VIAL ONE (10:25)
[2020-12-02] MEDS ORDERED: ELECTROLYTE-148 SOLN 500 ML IV ONE (10:43)
[2020-12-02] MEDS ORDERED: AMPICILLIN - 2 GM in SODIUM CHLORIDE 100 ML IVPB ONE (10:44)
[2020-12-02] MEDS ORDERED: ELECTROLYTE-148 SOLN 1,000 ML IV SCH (10:45)
[2020-12-02] MEDS ORDERED: OXYTOCIN 30 UNITS in 0.9% NS 30 UNIT/500 ML INFUS.BAG IVPB SCH (10:45)
[2020-12-02 11:04] LABS: BASO % 0.3 % (0-2.0); EOS % 1.4 % (0-4.5); HEMATOCRIT 32.1 % (32.4-45.2); HEMOGLOBIN 10.9 GM/dL (10.7-15.3); LYMPH % 35.5 % (8-40); MCH 29.2 pg (25.7-33.7); MCHC 33.9 g/dl (32.0-36.0); MEAN CELL VOLUME 86.3 fl (80-96); MEAN PLT VOLUME 7.3 fl (7.5-11.1); MONO % 9.7 % (3.8-10.2); NEUT % 53.1 % (42.8-82.8); PLATELET COUNT 176 10^3/uL (134-434); RBC 3.71 M/mm3 (3.60-5.2); RDW 14.2 % (11.6-15.6)
[2020-12-02 11:11] LABS: INR 0.86 (0.83-1.09); PROTHROMBIN TIME (PATIENT) 10.6 SEC (9.7-13.0)
[2020-12-02 11:20] LABS: CALCIUM 7.8 mg/dL (8.5-10.1)
[2020-12-02 11:21] LABS: BLOOD UREA NITROGEN 7.1 mg/dL (7-18)
[2020-12-02 11:24] LABS: CREATININE 0.5 mg/dL (0.55-1.3)
[2020-12-02] MEDS ORDERED: PCA PUMP NR ONE ×2 (12:13→15:50)
[2020-12-02] MEDS ORDERED: FENTANYL/BUPIVACAINE/NS/PF - PCEA - 50 ML DISP.SYRIN EP ONE ×2 (12:13→15:50)
[2020-12-02 12:30] LABS: METHADONE, UR NEGATIVE (NEGATIVE); OPIATES, URI NEGATIVE (NEGATIVE); URINE BARBITURATES NEGATIVE (NEGATIVE); URINE BENZODIAZEPINES NEGATIVE (NEGATIVE)
[2020-12-02 12:31] LABS: PHENCYCLIDINE,URINE NEGATIVE (NEGATIVE)
[2020-12-02 12:39] LABS: URINE AMPHETAMINES NEGATIVE (NEGATIVE)
[2020-12-02 12:42] LABS: COCAINE, UR NEGATIVE (NEGATIVE)
[2020-12-02] MEDS ORDERED: NALOXONE HCL 0.4 MG/ML VIAL IVPUSH PRN (12:56)
[2020-12-02] MEDS ORDERED: OXYTOCIN 30 UNITS in 0.9% NS 30 UNIT/500 ML INFUS.BAG IVPB ONE (12:56)
[2020-12-02] MEDS ORDERED: FENTANYL/BUPIVACAINE/NS/PF - PCEA - 50 ML DISP.SYRIN EP SCH (13:00)
[2020-12-02 13:29] VITALS: BMI 31.8
[2020-12-02] MEDS ORDERED: AMPICILLIN SODIUM 1 GM VIAL ONE (14:30)
[2020-12-02] MEDS ORDERED: AMPICILLIN - 1 GM in SODIUM CHLORIDE 100 ML IVPB SCH (14:44)
[2020-12-02 15:58] LABS: HIV INTERPRETATION NEGATIVE (NEGATIVE)
[2020-12-02] MEDS ORDERED: OXYTOCIN 20 UNITS in 0.9% NS 20 UNIT/1,000 ML INFUS.BAG IV ONE (16:11)
[2020-12-02] MEDS ORDERED: LIDOCAINE HCL 1% PRESERVATIVE FREE - 30ML VIAL ONE (16:11)
[2020-12-02] MEDS ORDERED: BENZOCAINE 20% 57 GM BOTTLE TP PRN (16:57)
[2020-12-02] MEDS ORDERED: BISACODYL 10 MG SUPP.RECT RC PRN (16:57)
[2020-12-02] MEDS ORDERED: METHYLERGONOVINE MALEATE 0.2 MG/1 ML AMP IM PRN (16:57)
[2020-12-02] MEDS ORDERED: ACETAMINOPHEN 325 MG TABLET (FP) PO PRN (16:57)
[2020-12-02] MEDS ORDERED: BENZOCAINE 28 GM HEMORRHOIDAL OINTMENT TP PRN (16:57)
[2020-12-02] MEDS ORDERED: WITCH HAZEL 50% (TUCKS) 40 PAD/JAR PAD TP PRN (16:57)
[2020-12-02] MEDS ORDERED: OXYTOCIN 20 UNITS in 0.9% NS 20 UNIT/1,000 ML INFUS.BAG IV SCH (17:00)
[2020-12-02] MEDS: IBUPROFEN 600 MG TABLET (FP) PO PRN (23:25)
[2020-12-03] MEDS ORDERED: AMPICILLIN - 1 GM in SODIUM CHLORIDE 100 ML IVPB SCH (07:23)
[2020-12-03] MEDS: IBUPROFEN 600 MG TABLET (FP) PO PRN ×2 (07:52→21:17)
[2020-12-03 08:01] LABS: BASO % 0.2 % (0-2.0); EOS % 0.9 % (0-4.5); HEMATOCRIT 28.4 % (32.4-45.2); HEMOGLOBIN 9.6 GM/dL (10.7-15.3); LYMPH % 26.4 % (8-40); MCH 29.6 pg (25.7-33.7); MCHC 33.7 g/dl (32.0-36.0); MEAN CELL VOLUME 87.7 fl (80-96); MEAN PLT VOLUME 7.7 fl (7.5-11.1); MONO % 7.4 % (3.8-10.2); NEUT % 65.1 % (42.8-82.8); PLATELET COUNT 150 10^3/uL (134-434); RBC 3.24 M/mm3 (3.60-5.2); RDW 14.1 % (11.6-15.6); WHITE BLOOD COUNT 7.8 K/mm3 (4.0-10.0)
[2020-12-03] MEDS: PRENATAL VITAMINS W/ FOLIC ACID TABLET (FP) PO SCH (09:19)
[2020-12-03] MEDS ORDERED: DIPHTH,PERTUSS(ACELL),TET 0.5 ML DISP.SYRIN IM ONE (10:00)
[2020-12-03] MEDS ORDERED: SENNOSIDES/DOCUSATE COMBO (SENNA PLUS) TABLET (UD) PO PRN (22:00)
[2020-12-04] MEDS ORDERED: FLU VACC QS2021-22(6MOS UP)/PF 60 MCG/0.5 ML SYRINGE IM ONE (10:00)
[2020-12-04 10:08] VITALS: BP 116/77; PULSE 95; TEMP 98.3
[2020-12-04] MEDS: PRENATAL VITAMINS W/ FOLIC ACID TABLET (FP) PO SCH (11:14)
== END 2020-12-04 13:23 | disposition home or self-care (01) | DRG 560 ==
LOC: JLDR 09:45 → J3W 20:32
PROVIDERS: ADMIT Obstetrics & Gynecology; ATTEND Obstetrics & Gynecology
PROC: 0HQ9XZZ Repair Perineum Skin, External Approach (ICD-10-PCS; principal; 2020-12-02)
PROC: 10E0XZZ Delivery of Products of Conception, External Approach (ICD-10-PCS; 2020-12-02)
DX: O70.0 First degree perineal laceration during delivery (principal); Z3A.38 38 weeks gestation of pregnancy; Z37.0 Single live birth
CPT/HCPCS: 36415; 59409; 80048; 80307; 85025; 85610; 85730; 86780; 86850; 86900; 86901; 87389; 90686; 90715; C9803; G0008; U0003; U0005

== ENCOUNTER 2021-09-25 18:13 | Emergency (ER) | payer OTHER ==
[2021-09-25 18:21] VITALS: BP 126/82; PULSE 70; RESP 18; TEMP 98; BMI 25.7
[2021-09-25] MEDS ORDERED: ACETAMINOPHEN 1000 MG/100 ML BAG IVPB ONE (19:29)
[2021-09-25] MEDS ORDERED: SODIUM CHLORIDE 0.9% 500 ML INFUS.BAG IV ONE (19:29)
[2021-09-25] MEDS ORDERED: ACETAMINOPHEN INJECTION 100 ML IVPB ONE (20:22)
[2021-09-25 20:44] LABS: EPI CELLS 5 /uL (0-25.1); HYALINE CASTS 1 /uL (0-3.1); PH,URINE 5.5 (5.0-8.0); URINE APPEARANCE CLEAR; URINE BACTERIA 73 /uL (0-1359); URINE BILIRUBIN NEGATIVE (NEGATIVE); URINE COLOR YELLOW; URINE GLUCOSE (UA) NEGATIVE (NEGATIVE); URINE KETONE 1+ (NEGATIVE); URINE LEUK ESTERASE NEGATIVE (NEGATIVE); URINE NITRITE NEGATIVE (NEGATIVE); URINE PROTEIN NEGATIVE (NEGATIVE); URINE RBC 167 /uL (0-23.9); URINE UROBILINOGEN 0.2 mg/dL (0.2-1.0); URINE WBC 10 /uL (0-25.8)
[2021-09-25 20:45] LABS: HCG,QUALITATIVE URINE Negative
[2021-09-25 20:49] LABS: HEMATOCRIT 37.2 % (32.4-45.2); HEMOGLOBIN 12.1 GM/dL (10.7-15.3); MCH 28.1 pg (25.7-33.7); MCHC 32.6 g/dl (32.0-36.0); MEAN CELL VOLUME 86.3 fl (80-96); MEAN PLT VOLUME 6.8 fl (7.5-11.1); PLATELET COUNT 255 10^3/uL (134-434); RBC 4.31 M/mm3 (3.60-5.2); RDW 13.4 % (11.6-15.6); WHITE BLOOD COUNT 6.4 K/mm3 (4.0-10.0)
[2021-09-25 21:08] LABS: CHLORIDE 106 mmol/L (98-107); SODIUM 138 mmol/L (136-145)
[2021-09-25 21:11] LABS: CALCIUM 8.7 mg/dL (8.5-10.1)
[2021-09-25 21:12] LABS: ANION GAP 7 MMOL/L (8-16); BLOOD UREA NITROGEN 9.1 mg/dL (7-18); CO2 24 mmol/L (21-32); GLUCOSE,RANDOM 79 mg/dL (74-106)
[2021-09-25 21:15] LABS: CREATININE 0.9 mg/dL (0.55-1.3); SGOT/AST 25 U/L (15-37); SGPT/ALT 26 U/L (13-61)
[2021-09-25 21:16] LABS: BILIRUBIN,TOTAL 0.7 mg/dL (0.2-1); TOT PROT 7.8 g/dl (6.4-8.2)
[2021-09-25 21:18] LABS: ALK PHOS 73 U/L (45-117)
[2021-09-25 22:22] LABS: ANISOCYTOSIS 1+; MACROCYTOSIS 0; OVALOCYTE 1+
[2021-09-25] MEDS ORDERED: LIDOCAINE 5% TOPICAL PATCH ONE (22:39)
== END 2021-09-25 22:41 | disposition home or self-care (01) ==
LOC: JER 18:13
PROC: 3E033GC Introduction of Other Therapeutic Substance into Peripheral Vein, Percutaneous Approach (ICD-10-PCS; principal; 2021-09-25)
DX: O20.9 Hemorrhage in early pregnancy, unspecified (principal); Z3A.00 Weeks of gestation of pregnancy not specified
CPT/HCPCS: 36415; 76830-TC; 80053; 81003; 84702; 84703; 85025; 87086; 99284-25

== ENCOUNTER 2021-12-12 13:32 | Emergency (ER) | payer OTHER ==
[2021-12-12 14:15] VITALS: BP 121/71; PULSE 85; RESP 18; TEMP 98.6; BMI 22.4
== END 2021-12-12 14:59 | disposition home or self-care (01) ==
LOC: JERFT 13:32
DX: M79.632 Pain in left forearm (principal); M54.2 Cervicalgia; V42.9XXA Unspecified car occupant injured in collision with two- or three-wheeled motor vehicle in traffic accident, initial encounter
CPT/HCPCS: 99281-25